=== PATIENT | female | born 1975 | race Caucasian/White ===

== ENCOUNTER 2019-09-01 17:10 | Emergency (ER) | payer BC ==
[2019-09-01] MEDS ORDERED: ONDANSETRON 4 MG (ODT) TAB ONE (17:39)
[2019-09-01] MEDS ORDERED: MORPHINE 4 MG/ML SYR ONE (17:39)
[2019-09-01] MEDS ORDERED: TETANUS & DIPHTHERIA TOX,ADULT 0.5 ML VIAL ONE (17:39)
[2019-09-01] MEDS ORDERED: LIDOCAINE 1% MPF 30 ML VIAL ONE (18:00)
[2019-09-01] MEDS ORDERED: BUPIVACAINE 0.5% PF 10 ML VIAL ONE (18:00)
--- NOTE | 2019-09-01 18:19 | RAD REPORT ---
EXAM DESCRIPTION: RAD - Tib Fib Left - 09/01/2019 6:02 pm CLINICAL HISTORY: injury Pain and swelling COMPARISON: No comparisons FINDINGS: Laceration is seen anterior aspect of the so soft tissues. No fracture or radiopaque for eign body.
--- NOTE | 2019-09-01 20:33 | EDPHYS ---
Physician Documentation [facility] Name: Jennifer Wilkins Age: 44 yrs Sex: Female : 1975 Arrival Date: 09/01/2019 Time: 17:12 Bed 16 Private MD: ED Physician Cesar Jefferson HPI: 08/31 17:35 This 44 yrs old Female presents to ER via Ambulatory with complaints of jmm Laceration To Leg. 17:35 The patient has a laceration related to:. Onset: The symptoms/episode began/occurred jmm acutely, just prior to arrival. Associated signs and symptoms: Pertinent negatives: deformity, loss of consciousness. This is a 44 year old female with a history of hypothyroidism that presents to the ED with complaints of left lower leg pain which developed after her leg was hit with a cement corn grinder. Unsure on tetanus immunization. . Historical: - Allergies: 17:20 Biaxin; ll1 - PMHx: 17:20 Hypothyroidism; ll1 - PSHx: 17:20 ; ll1 - Immunization history:: Last tetanus immunization: < 5 years ago unknown. - Social history:: Smoking status: Patient denies any tobacco usage or history of. Patient/guardian denies using alcohol, street drugs, tobacco products. ROS: 17:35 Constitutional: Negative for fever, chills, and weight loss, Cardiovascular: Negative jmm for chest pain, palpitations, and edema, Respiratory: Negative for shortness of breath, cough, wheezing, and pleuritic chest pain. 17:35 MS/extremity: Positive for injury or acute deformity, laceration. 17:35 Skin: Positive for laceration(s). 17:35 All other systems are negative. Exam: 17:35 Constitutional: This is a well developed, well nourished patient who is awake, alert, jmm and in no acute distress. Head/Face: atraumatic. Eyes: EOMI, no conjunctival erythema appreciated ENT: Moist Mucus Membranes Neck: Trachea midline, Supple Chest/axilla: Normal chest wall appearance and motion. Cardiovascular: Regular rate and rhythm. No edema appreciated Respiratory: Normal respirations, no respiratory distress appreciated Abdomen/GI: Non distended, soft Back: Normal ROM 17:35 Skin: 6 cm laceration noted to the left lower leg. 17:35 Neuro: Orientation: is normal, Mentation: is normal, Memory: is normal. 17:35 Psych: Behavior/mood is pleasant, cooperative. Vital Signs: 17:21 BP 125 / 76; Pulse 93; Resp 18; Temp 98.0; Pulse Ox 100% ; Pain 9/10; ll1 18:26 BP 124 / 71; Pulse 81; Resp 16; Temp 97.6(TE); Pulse Ox 100% on R/A; mh5 Laceration: 20:35 Wound Repair of 9cm ( 3.5in ) subcutaneous laceration to left so. Irregularly pm1 shaped.. Distal neuro/vascular/tendon intact. Anesthesia: Local anesthetic administered with 10 mls of Lido/Marcaine. Wound prep: Extensive cleansing with betadine with hibiclenz by me, Wound irrigation with saline by me, Particulate matter removal of dirt, Wound explored extensively, Copious irrigation. Skin closed with 9 4-0 Prolene using simple sutures and sterile technique. Subcutaneous tissue closed with 4 4-0 Vicryl using simple sutures and sterile technique. Dressed with Neosporin, 4x4's, Kerlix. Patient tolerated well. MDM: 17:27 Patient medically screened. [facility] 18:23 Transition of care: After a detail discussion of the patient's case, care is [facility] transferred to Pascual Vázquez NP. 20:31 Data reviewed: vital signs. Data interpreted: Pulse oximetry: on room air is 100 %. pm1 Interpretation: normal. Counseling: I had a detailed discussion with the patient and/or guardian regarding: the historical points, exam findings, and any diagnostic results supporting the discharge/admit diagnosis, radiology results, the need for outpatient follow up, suture removal in 10-14 days, to return to the emergency department if symptoms worsen or persist or if there are any questions or concerns that arise at home. 20:31 Special discussion: I discussed in detail with the patient the higher chance of wound pm1 infection based on his presenting history. 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 Exp: sv 05/01/2021. Lot #: [id number]. } Route: IM; Site: left deltoid; 18:30 Follow up: Response: No adverse reaction sv 17:45 Drug: Zofran (Ondansetron) 4 mg Route: PO; sv 18:30 Follow up: Response: No adverse reaction sv 17:45 Drug: morphine 4 mg {Note: rass2.} Route: IM; Site: left deltoid; sv 18:30 Follow up: Response: No adverse reaction; RASS: Alert and Calm (0) sv Disposition: 09/01 05:33 Co-signature as Attending Physician, Cesar Jefferson MD I agree with the assessment and [facility] plan of care. Disposition: 09/01/19 20:32 Discharged to Home. Impression: Laceration without foreign body, left lower leg. - Condition is Stable. - Discharge Instructions: Laceration Care, Adult. - Prescriptions for Tylenol- Codeine #3 300-30 mg Oral Tablet - take 2 tablets by ORAL route every 6 hours As needed; 20 tablet. Bactrim DS 800- 160 mg Oral Tablet - take 1 tablet by ORAL route every 12 hours for 10 days; 20 tablet. - Medication Reconciliation Form, Thank You Letter, Antibiotic Education, Prescription Opioid Use form. - Follow up: Emergency Department; When: As needed; Reason: Worsening of condition. Follow up: Private Physician; When: 2 - 3 days; Reason: Recheck today's complaints, Continuance of care, Re-evaluation by your physician. - Problem is new. - Symptoms have improved. Signatures: Dispatcher [employer] Gabbie Shepherd RN RN sv Anderson, Corey, MD MD cha Mickail, Joel, PA PA sharonm Pascual Vázquez, SCOUT LEASER SCOUT LEASER pm1 Lynette Fabian mw2 Tereza Eric RN RN ll1 Corrections: (The following items were deleted from the chart) 08/31 21:07 20:32 09/01/2019 20:32 Discharged to Home. Impression: Laceration without foreign body, mw2 left lower leg. Condition is Stable. Forms are Medication Reconciliation Form, Thank You Letter, Antibiotic Education, Prescription Opioid Use. Follow up: Emergency Department; When: As needed; Reason: Worsening of condition. Follow up: Private Physician; When: 2 - 3 days; Reason: Recheck today's complaints, Continuance of care, Re-evaluation by your physician. Problem is new. Symptoms have improved. pm1
--- NOTE | 2019-09-01 20:33 | ER ---
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 ll1 Right ankle pain also. Bleeding controlled. Coronavirus screen: Proceed with normal triage. Patient denies a cough. Patient denies shortness of breath or difficulty breathing. Patient denies measured and/or subjective temperature greater than 100.4F prior to today's visit. Patient denies travel on a cruise ship or to a country the [facility] currently lists as an affected area. Patient denies contact with known and/or suspected case of COVID-19. Ebola Screen: Patient denies travel to an Ebola-affected area in the 21 days before illness onset. Initial Sepsis Screen: Does the patient meet any 2 criteria? HR > 90 bpm. No. Patient's initial sepsis screen is negative. Risk Assessment: Do you want to hurt yourself or someone else? Patient reports no desire to harm self or others. Onset of symptoms was September 01, 2019. 17:21 Method Of Arrival: Ambulatory ll1 17:21 Acuity: MARK ANTHONY 3 ll1 17:45 Complicating Factors: There are no complicating factors for this patient. Initial sv Sepsis Screen: Does the patient have a suspected source of infection? Yes: Skin breakdown/wound. Historical: - Allergies: 17:20 Biaxin; ll1 - PMHx: 17:20 Hypothyroidism; ll1 - PSHx: 17:20 ; ll1 - Immunization history:: Last tetanus immunization: < 5 years ago unknown. - Social history:: Smoking status: Patient denies any tobacco usage or history of. Patient/guardian denies using alcohol, street drugs, tobacco products. Screenin:27 Abuse screen: Denies threats or abuse. Denies injuries from another. Nutritional sv screening: No deficits noted. Tuberculosis screening: No symptoms or risk factors identified. Fall Risk None identified. Assessment: 17:45 General: Appears in no apparent distress. uncomfortable, well groomed, well developed, sv Behavior is cooperative, appropriate for age, anxious. Pain: Complains of pain in left so Pain currently is 9 out of 10 on a pain scale. Pain began 1 hour ago. Is continuous. Neuro: Level of Consciousness is awake, alert, obeys commands, Oriented to person, place, time, situation, Moves all extremities. Full function. Respiratory: Airway is patent Respiratory effort is even, unlabored, Respiratory pattern is regular, symmetrical. Derm: Skin is intact, Skin is pink, warm \T\ dry. Musculoskeletal: Range of motion: intact in all extremities. Injury Description: Laceration sustained to left so is contaminated, 2.6 to 7.5 cm long, not bleeding, was sustained 30-60 minutes ago. Vital Signs: 17:21 BP 125 / 76; Pulse 93; Resp 18; Temp 98.0; Pulse Ox 100% ; Pain 9/10; ll1 18:26 BP 124 / 71; Pulse 81; Resp 16; Temp 97.6(TE); Pulse Ox 100% on R/A; mh5 ED Course: 17:12 Patient arrived in ED. as 17:21 Arm band placed on Patient placed in an exam room, on a stretcher. ll1 17:22 Triage completed. ll1 17:27 Chandler Gomez PA is PHCP. [facility] 17:27 Cesar Jefferson MD is Attending Physician. [facility] 17:27 Gabbie Noonan, PANTERA is Primary Nurse. sv 17:27 Patient has correct armband on for positive identification. Bed in low position. Call sv light in reach. Door closed. Head of bed elevated. 17:45 Assist provider with laceration repair Set up tray. sv 18:03 Tib Fib Left XRAY In Process Unspecified. EDMS 18:25 Pulse ox on. NIBP on. mh5 18:32 PHCP role handed off by Chandler Gomez PA pm1 18:32 Pascual Vázquez NP is PHCP. pm1 19:08 Report given to Sebas MOTT. sv 19:10 Primary Nurse role handed off by Gabbie Noonan, PANTERA sv 21:15 Patient did not have IV access during this emergency room visit. 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 Exp: sv 05/01/2021. Lot #: [id number]. } Route: IM; Site: left deltoid; 18:30 Follow up: Response: No adverse reaction sv 17:45 Drug: Zofran (Ondansetron) 4 mg Route: PO; sv 18:30 Follow up: Response: No adverse reaction sv 17:45 Drug: morphine 4 mg {Note: rass2.} Route: IM; Site: left deltoid; sv 18:30 Follow up: Response: No adverse reaction; RASS: Alert and Calm (0) sv Outcome: 20:32 Discharge ordered by MD. pm1 21:07 Patient left the ED. mw2 21:14 Discharged to home ambulatory. ao 21:14 Condition: stable 21:14 Discharge instructions given to patient, Instructed on discharge instructions, follow up and referral plans. Demonstrated understanding of instructions, follow-up care, medications, Prescriptions given X 2. Signatures: Dispatcher [employer] EDGabbie Diez RN RN sv Mickail, Joel, PA PA jmm Martinez, Amelia as Ortiz, Alex RN Pascual Macdonald NP VAN CDL DRIVER pm1 Priya Carrizales Lynette Bustos mw2 Tereza rEic RN RN ll1
[2019-09-01 21:13] VITALS: O2SAT 100
[2019-09-01 21:14] VITALS: BP 124/71; TEMP 97.6
== END 2019-09-01 21:07 | disposition home or self-care (01) ==
LOC: ER 17:10
PROC: 0JQP0ZZ Repair Left Lower Leg Subcutaneous Tissue and Fascia, Open Approach (ICD-10-PCS; principal; 2019-09-01)
DX: S81.812A Laceration without foreign body, left lower leg, initial encounter (principal); W22.8XXA Striking against or struck by other objects, initial encounter; Y93.9 Activity, unspecified; Y92.9 Unspecified place or not applicable; E03.9 Hypothyroidism, unspecified; Z23 Encounter for immunization; Z88.6 Allergy status to analgesic agent
CPT/HCPCS: 90471; 90714; 96372; 99284

== ENCOUNTER 2022-03-29 22:42 | Emergency (ER) | payer BC ==
[2022-03-29] MEDS ORDERED: ONDANSETRON 4 MG/2 ML VIAL ONE (23:09)
[2022-03-29] MEDS ORDERED: PANTOPRAZOLE 40 MG INJ ONE (23:09)
[2022-03-29] MEDS ORDERED: MORPHINE 4 MG/ML SYR ONE (23:09)
[2022-03-29] MEDS ORDERED: NA CHLORIDE 0.9% 1,000 ML ONE (23:10)
[2022-03-29 23:18] LABS: Urine Blood Trace-intact (Negative); Urine Glucose Negative (Negative); Urine Protein Negative (Negative); Urine Specific Gravity 1.025 (1.005-1.030)
[2022-03-29 23:37] LABS: Urine Specific Gravity/Preg 1.025 (1.005-1.030)
[2022-03-29 23:41] LABS: Absolute Lymphocytes (CBC) 2.6 K/uL (0.7-4.9); Hematocrit 35.9 % (36.0-45.0); Lymphocytes % 17.8 % (15.3-44.8); MCV 100.3 fL (80-100); MPV 7.1 fL (7.6-11.3); RBC Red Blood Cell Count 3.58 M/uL (3.86-4.86)
[2022-03-29 23:53] LABS: Albumin 3.6 g/dL (3.4-5.0); Bilirubin Total 1.3 mg/dL (0.2-1.0); Potassium 3.3 mmol/L (3.5-5.1); Protein, Total 6.8 g/dL (6.4-8.2)
[2022-03-29 23:58] LABS: Urine Bacteria <20 /HPF (<20); Urine Mucus Slight /HPF (None Seen); Urine RBC <5 /HPF (None Seen)
--- NOTE | 2022-03-30 02:13 | EDPHYS ---
Physician Documentation [facility] Name: Jennifer Wilkins Age: 47 yrs Sex: Female : 1975 Arrival Date: 03/29/2022 Time: 22:46 Bed 14 Private MD: Adam Cooper ED Physician Gabbie Loera HPI: 03/29 22:59 This 47 yrs old Female presents to ER via Ambulatory with complaints of Abdominal Pain. cp 22:59 The patient presents with abdominal pain in the epigastric area. Onset: The cp symptoms/episode began/occurred today, about 1800. The symptoms radiate to Associated signs and symptoms: Pertinent positives: nausea. 23:00 Severity of pain: in the emergency department the pain is unchanged despite home cp interventions. 23:00 The symptoms are described as constant. 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 - Social history:: Smoking status: Patient denies any tobacco usage or history of. ROS: 23:05 Constitutional: Negative for body aches, chills, fever, poor PO intake. cp 23:05 Eyes: Negative for injury, pain, redness, and discharge. cp 23:05 ENT: Negative for drainage from ear(s), ear pain, sore throat, difficulty swallowing, difficulty handling secretions. 23:05 Cardiovascular: Negative for chest pain, edema, palpitations. 23:05 Respiratory: Negative for cough, shortness of breath, wheezing. 23:05 Abdomen/GI: Positive for abdominal pain, nausea, of the epigastric area, Negative for vomiting, diarrhea, constipation. 23:05 Back: Positive for radiated pain. 23:05 Neuro: Negative for altered mental status, headache, syncope, weakness. 23:05 All other systems are negative. Exam: 23:10 Constitutional: The patient appears in no acute distress, alert, awake, cp non-diaphoretic, non-toxic, well developed, well nourished, in obvious pain, uncomfortable. 23:10 Head/Face: Normocephalic, atraumatic. cp 23:10 Eyes: Periorbital structures: appear normal, Conjunctiva: normal, no exudate, no injection, Sclera: no appreciated abnormality, Lids and lashes: appear normal, bilaterally. 23:10 ENT: External ear(s): are unremarkable, Nose: is normal, Mouth: Lips: moist, Oral mucosa: moist, Posterior pharynx: Airway: no evidence of obstruction, patent. 23:10 Chest/axilla: Inspection: normal. 23:10 Cardiovascular: Rate: normal, Rhythm: regular. 23:10 Respiratory: the patient does not display signs of respiratory distress, Respirations: normal, no use of accessory muscles, no retractions, labored breathing, is not present, Breath sounds: are clear throughout, no decreased breath sounds, no stridor, no wheezing. 23:10 Abdomen/GI: Inspection: abdomen appears normal, Bowel sounds: active, all quadrants, Palpation: soft, in all quadrants, severe abdominal tenderness, in the epigastric area, rebound tenderness, is not appreciated, voluntary guarding, is elicited in the epigastric area. 23:10 Back: pain, that is mild, of the mid back area, ROM is normal. 23:10 Neuro: Orientation: to person, place \T\ time. Mentation: is normal, Motor: moves all fours, strength is normal, Sensation: is normal. Vital Signs: 22:49 BP 148 / 89; Pulse 87; Resp 18; Temp 97.7(O); Pulse Ox 100% ; Weight 58.97 kg; Height 5 mb9 ft. 4 in. (162.56 cm); 23:41 BP 139 / 78; Pulse 70; Resp 15; Pulse Ox 99% on R/A; kl 03/30 03:38 BP 132 / 74; Pulse 68; Resp 15; Temp 97.9; Pulse Ox 100% on R/A; kl 03/29 22:49 Body Mass Index 22.31 (58.97 kg, 162.56 cm) mb9 MDM: 03/29 22:54 Patient medically screened. cp 23:30 Differential diagnosis: bowel obstruction, cholecystitis, Cholelithiasis, cp gastroesophageal reflux disease, non-specific abd pain, pancreatitis, Peptic Ulcer Disease, Perf. Duodenal Ulcer, Perf. Gastric Ulcer, Pyelonephritis, Ureterolithiasis, urinary tract infection. 03/30 01:30 Data reviewed: vital signs, nurses notes, lab test result(s), radiologic studies, CT cp scan, ultrasound. Management of patient was discussed with the following: Tariff Publishing Agent: DR Roa who recommends transfer for GI services. I considered the following discharge prescriptions or medication management in the emergency department Medications were administered in the Emergency Department. See MAY. 03/29 23:02 Order name: CBC with Diff; Complete Time: 00:00 03/30 00:00 Interpretation: Normal except: WBC 14.60; RBC 3.58; HCT 35.9; MCV 100.3; MCH 35.4; MPV cp 7.1; LENNY% 75.0; NEUT A 11.0. 03/29 23:02 Order name: CMP; Complete Time: 00:00 03/30 00:01 Interpretation: Abnormal: K 3.3; GFR 78; AST 125; ALT 79; BILIT 1.3. 03/29 23:02 Order name: Lipase; Complete Time: 00:00 03/29 23:02 Order name: Urine Microscopic Only; Complete Time: 00:00 03/29 23:18 Order name: Urine Dipstick-Ancillary; Complete Time: 23:39 EDMS 01 23:39 Interpretation: Normal except: UKET 2+; UBLD Trace-intact. 03/29 23:31 Order name: Urine --Ancillary (enter results); Complete Time: 23:39 wm 03/29 23:02 Order name: XRAY Chest (1 view) 03/29 23:02 Order name: US Abdomen Limited: gallbladder 03/29 23:40 Order name: CT Abd/Pelvis - IV Contrast Only 03/30 01:32 Order name: Lactate w/ 2H reflex if indic.; Complete Time: 03:06 03/30 01:32 Order name: Blood Culture Adult (2) 03/30 01:43 Order name: SARS RAPID; Complete Time: 03:33 03/29 23:02 Order name: IV Saline Lock; Complete Time: 23:40 03/29 23:02 Order name: Labs collected and sent; Complete Time: 23:40 cp 03/29 23:02 Order name: Urine Dipstick-Ancillary (obtain specimen); Complete Time: 23:26 cp 03/29 23:02 Order name: Urine Test (obtain specimen); Complete Time: 23:27 cp Administered Medications: 03/29 23:20 Drug: NS 0.9% 1000 ml Route: IV; Rate: 1 bolus; Site: right antecubital; kl 23:20 Drug: ProTONIX (pantoprazole) 40 mg Route: IVP; Site: right antecubital; kl 23:25 Drug: Zofran (Ondansetron) 4 mg Route: IVP; Site: right antecubital; kl 23:41 Follow up: Response: No adverse reaction; Marked relief of symptoms kl 23:41 Follow up: Response: No adverse reaction; Pain is decreased kl 23:30 Drug: morphine 4 mg Route: IVP; Infused Over: 4 mins; Site: right antecubital; kl 03/30 03:02 Drug: Zosyn (piperacillin-tazobactam) 3.375 grams Route: IVPB; Infused Over: 60 mins; kl Site: right antecubital; 03:02 Not Given (Physician Discretion): NS 0.9% 1000 ml IV at 100 ml/hr continuous kl 03:02 Drug: morphine 4 mg Route: IVP; Infused Over: 4 mins; Site: right antecubital; kl 03:02 Drug: Lactated Ringers Solution 1000 ml Route: IV; Rate: 100 ml/hr; Site: right kl antecubital; 03:03 Drug: Zofran (Ondansetron) 4 mg Route: IVP; Site: right antecubital; kl Disposition: 03:36 STAFF ATTESTATION: The patient's history, exam findings, diagnostics and a summary of sd2 any interventions or procedures was reviewed in detail with the DAVID. I personally interviewed and examined the patient, and I have reviewed and agree with the HPI and exam. My personal exam shows a nontoxic well appearing female in NAD with stable VS. Transfer call with hospitalist taken by myself and patient accepted by Dr. Marin at this time. I confirm the diagnosis as documented by the DAVID. I have reviewed and agree with the care plan articulated in the disposition section. Gabbie Loera MD. Disposition Summary: 03/30/22 02:12 Transfer Ordered Transfer Location: Other Acute Care Facility cp Reason: Higher level of care cp Condition: Stable cp Problem: new cp Symptoms: have improved cp Accepting Physician: Doctor(03/30/22 04:19) leila Diagnosis - Acute cholecystitis cp Forms: - Medication Reconciliation Form cp - SBAR form cp Signatures: Dispatcher [employer] EDElsi Hernández RN RN Cesar lCaire PA PA cp Dunlop, Stephanie, MD MD sd2 Elsa Laguna RN RN mb9 Corrections: (The following items were deleted from the chart) 00:01 00:00 Abnormal: K 3.3. cp cp 00:01 00:01 Abnormal: K 3.3; GFR 78. cp cp 04:19 02:12 Doctor radha dee
--- NOTE | 2022-03-30 02:13 | ER ---
Nurse's Notes [facility] Name: Jennifer Wilkins Age: 47 yrs Sex: Female : 1975 Arrival Date: 03/29/2022 Time: 22:46 Bed 14 Private MD: Adam Cooper Diagnosis: Acute cholecystitis Presentation: 03/29 22:49 Chief complaint: Patient states: "around 6pm this evening I started having stomach pain mb9 that feels like I got punched in the stomach. It hurts all around my rib cage and it hurts to breathe. I've never had pain like this before". Coronavirus screen: Vaccine status: Client denies travel out of the [place] in the last 14 days. At this time, the client does not indicate any symptoms associated with coronavirus-19. Ebola Screen: No symptoms or risks identified at this time. Initial Sepsis Screen: Does the patient meet any 2 criteria? No. Patient's initial sepsis screen is negative. Does the patient have a suspected source of infection? No. Patient's initial sepsis screen is negative. Risk Assessment: Do you want to hurt yourself or someone else? Patient reports no desire to harm self or others. Onset of symptoms was March 29, 2022. 22:49 Method Of Arrival: Ambulatory 9 22:49 Acuity: MARK ANTHONY 3 9 03/30 04:08 Note Pt accepted to [facility] downtime reports called to Mary TORRES pt and family kl updated on POC verbalized understanding. 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 - Social history:: Smoking status: Patient denies any tobacco usage or history of. Screenin:58 [facility] ED Fall Risk Assessment (Adult) History of falling in the last 3 months, mb9 including since admission No falls in past 3 months (0 pts) Confusion or Disorientation No (0 pts) Intoxicated or Sedated No (0 pts) Impaired Gait No (0 pts) Mobility Assist Device Used No (0 pt) Altered Elimination No (0 pt) Score/Fall Risk Level 0 - 2 = Low Risk Oriented to surroundings, Maintained a safe environment, Educated pt \\T\\ family on fall prevention, incl call for assistance when getting out of bed. Abuse screen: Denies threats or abuse. Nutritional screening: No deficits noted. Tuberculosis screening: No symptoms or risk factors identified. Assessment: 23:00 General: Appears distressed, uncomfortable, well groomed, well developed, Behavior is kl anxious, crying. Pain: Complains of pain in abdomen Pain currently is 10 out of 10 on a pain scale. Quality of pain is described as throbbing, gnawing. GI: Bowel sounds present X 4 quads. Abd is soft X 4 quads Abdomen is tender to palpation. : No deficits noted. No signs and/or symptoms were reported regarding the genitourinary system. 03/30 00:26 Reassessment: No changes from previously documented assessment. Patient and/or family kl updated on plan of care and expected duration. Pain level reassessed. Patient is alert, oriented x 3, equal unlabored respirations, skin warm/dry/pink. Patient states feeling better. Patient states symptoms have improved. 02:00 Reassessment: No changes from previously documented assessment. Patient and/or family kl updated on plan of care and expected duration. Pain level reassessed. Patient is alert, oriented x 3, equal unlabored respirations, skin warm/dry/pink. Patient states feeling better. Patient states symptoms have improved. 03:08 Reassessment: No changes from previously documented assessment. Patient and/or family kl updated on plan of care and expected duration. Pain level reassessed. Patient is alert, oriented x 3, equal unlabored respirations, skin warm/dry/pink. Patient states feeling better. updated on plan of care . Vital Signs: 03/29 22:49 BP 148 / 89; Pulse 87; Resp 18; Temp 97.7(O); Pulse Ox 100% ; Weight 58.97 kg; Height 5 mb9 ft. 4 in. (162.56 cm); 23:41 BP 139 / 78; Pulse 70; Resp 15; Pulse Ox 99% on R/A; kl 03/30 03:38 BP 132 / 74; Pulse 68; Resp 15; Temp 97.9; Pulse Ox 100% on R/A; kl 03/29 22:49 Body Mass Index 22.31 (58.97 kg, 162.56 cm) mb9 ED Course: 03/29 22:46 Patient arrived in ED. es 22:46 Adam Cooper DO is Private Physician. es 22:47 Cesar Oneil PA is PHCP. cp 22:47 Gabbie Loera MD is Attending Physician. cp 22:51 Triage completed. mb9 22:52 Arm band placed on. mb9 22:52 Placed in gown. Bed in low position. Call light in reach. Side rails up X 1. Client mb9 placed on continuous cardiac and pulse oximetry monitoring. NIBP monitoring applied. 23:20 Inserted saline lock: 20 gauge in right antecubital area, using aseptic technique. kl Blood collected. 23:26 XRAY Chest (1 view) In Process Unspecified. EDMS 23:27 Urine Microscopic Only Sent. mb9 23:35 US Abdomen Limited: gallbladder In Process Unspecified. EDMS 23:40 CBC with Diff Sent. kl 23:40 CMP Sent. kl 23:40 Lipase Sent. kl 23:43 No provider procedures requiring assistance completed. 03/30 00:32 CT Abd/Pelvis - IV Contrast Only In Process Unspecified. EDMS 01:45 [facility]iated transfer to [facility] per Pt request. 01:54 [facility] declined due to capacity. 01:54 Initiated transfer to [facility] per Pt request, they immediately declined to being on diversion. 02:[address] [facility], spoke with Karina. wm 03:02 Blood Culture Adult (2) Sent. kl 03:42 Pt accepted for transfer to [facility] by Tania Bhat \\T\\ [id number] per Karina Zambrano. 04:10 Patient transferred, IV remains in place. kl Administered Medications: 03/29 23:20 Drug: NS 0.9% 1000 ml Route: IV; Rate: 1 bolus; Site: right antecubital; kl 23:20 Drug: ProTONIX (pantoprazole) 40 mg Route: IVP; Site: right antecubital; kl 23:25 Drug: Zofran (Ondansetron) 4 mg Route: IVP; Site: right antecubital; kl 23:41 Follow up: Response: No adverse reaction; Marked relief of symptoms kl 23:41 Follow up: Response: No adverse reaction; Pain is decreased kl 23:30 Drug: morphine 4 mg Route: IVP; Infused Over: 4 mins; Site: right antecubital; kl 03/30 03:02 Drug: Zosyn (piperacillin-tazobactam) 3.375 grams Route: IVPB; Infused Over: 60 mins; Site: right antecubital; 03:02 Not Given (Physician Discretion): NS 0.9% 1000 ml IV at 100 ml/hr continuous kl 03:02 Drug: morphine 4 mg Route: IVP; Infused Over: 4 mins; Site: right antecubital; kl 03:02 Drug: Lactated Ringers Solution 1000 ml Route: IV; Rate: 100 ml/hr; Site: right kl antecubital; 03:03 Drug: Zofran (Ondansetron) 4 mg Route: IVP; Site: right antecubital; Medication: 04:10 VIS not applicable for this client. Outcome: 02:12 ER care complete, transfer ordered by . radha 04:09 Transferred by ground EMS to [facility], Transfer form completed. X-rays sent w/ patient. 04:09 Condition: improved 04:09 Discharge instructions given to patient, family, Instructed on the need for transfer, Demonstrated understanding of instructions. 04:19 Patient left the ED. Signatures: Dispatcher [employer] Elsi Gonzalez, PANTERA RN Kiera Hirsch Corey, PA PA cp Marsh, Wendy wm Breneman, Mary Beth, RN RN mb9
[2022-03-30] MEDS ORDERED: Ringers Lactate 1,000 ML IV ONE (02:48)
[2022-03-30] MEDS ORDERED: NA CHLORIDE 0.9% 100 ML IV ONE (02:48)
[2022-03-30] MEDS ORDERED: MORPHINE 4 MG/ML SYR ONE (02:48)
[2022-03-30] MEDS ORDERED: PIPERACIL/TAZO 3.375 GM VIAL IV ONE (02:49)
[2022-03-30] MEDS ORDERED: ONDANSETRON 4 MG/2 ML VIAL ONE (03:01)
[2022-03-30 03:19] LABS: SARS-CoV-2 Antigen Rapid Res Negative (Negative)
[2022-03-30 04:45] VITALS: BP 132/74; TEMP 97.9; O2SAT 100
--- NOTE | 2022-03-30 11:01 | RAD REPORT ---
EXAM DESCRIPTION: XR Chest, 1 View CLINICAL HISTORY: The patient is 47 years old and is Female; epigastric pain TECHNIQUE: Frontal view of the chest. COMPARISON: No relevant prior studies available. FINDINGS: Lungs: Unremarkable. No consolidation. Pleural space: Unremarkable. No pneumothorax. Heart: Unremarkable. Mediastinum: Dense ring overlying the expected location of the gastroesophageal junction. Bones/joints: Unremarkable. IMPRESSION: No acute findings in the chest. Electronically signed by: Bandar Armstrong MD 03/29/2022 11:41 PM DIGITAL PRINTER Due to temporary technical issues with the PACS/Fluency reporting system, reports are being signed by the in house radiologists without review as a courtesy to insure prompt reporting. The interpreting radiologist is fully responsible for the content of the report.
--- NOTE | 2022-03-30 11:33 | RAD REPORT ---
EXAM DESCRIPTION: US Abdomen Limited, Gallbladder CLINICAL HISTORY: ABD PAIN TECHNIQUE: Real-time ultrasound of the right upper quadrant with image documentation. COMPARISON: No relevant prior studies available. FINDINGS: Gallbladder: Multiple gallstones within a mildly distended gallbladder. No gallbladder wall thickening or pericholecystic fluid. Common bile duct: Unremarkable as visualized. No stones. No dilation. IMPRESSION: Cholelithiasis without secondary signs to suggest acute cholecystitis. Electronically signed by: Susi Sinha MD 03/30/2022 12:05 AM MANAGER GAMING Due to temporary technical issues with the PACS/Fluency reporting system, reports are being signed by the in house radiologists without review as a courtesy to insure prompt reporting. The interpreting radiologist is fully responsible for the content of the report.
--- NOTE | 2022-03-30 11:55 | RAD REPORT ---
EXAM DESCRIPTION: CT Abdomen and Pelvis With Intravenous Contrast CLINICAL HISTORY: Upper abdomen pain TECHNIQUE: Axial computed tomography images of the abdomen and pelvis with intravenous contrast. S agittal and coronal reformatted images were created and reviewed. This CT exam was performed using one or more of the following dose reduction techniques: automated exposure control, adjustment of t he mA and/or kV according to patient size, and/or use of iterative reconstruction technique. COMPARISON: CT Abdomen Pelvis dated 08/31/2016, Right upper quadrant ultrasound dated 03/29/2022 FINDINGS: Lung bases: Unremarkable. No mass. No consolidation. ABDOMEN: Liver: Mild periportal edema. The liver is enlarged. Gallbladder and bile ducts: Distended gallbladder. Small amount of pericholecystic fluid. No ca lcified gallstones or gallbladder wall thickening. Minimal biliary dilatation. Pancreas: Unremarkable. No mass. No ductal dilation. Spleen: Unremarkable. No splenomegaly. Adrenals: Unremarkable. No mass. Kidneys and ureters: Small bilateral renal calculi. No hydronephrosis. Stomach and bowel: Interval gastric banding. Moderate stool within the proximal to mid large leonora l. No mucosal thickening. PELVIS: Appendix: Normal caliber appendix. No findings to suggest acute appendicitis. Bladder: Unremarkable. No mass. Reproductive: Unremarkable as visualized. ABDOMEN and PELVIS: Intraperitoneal space: Small amount of free fluid within the cul-de-sac. No free air. Bones/joints: No acute fracture. No dislocation. Soft tissues: See above. Vasculature: Unremarkable. No abdominal aortic aneurysm. Lymph nodes: Unremarkable. No enlarged lymph nodes. IMPRESSION: 1. Findings which may reflect early acute cholecystitis. Mild biliary dilatation. No demonstrable calcified ductal stones. 2. Other findings as above. Electronically signed by: Susi Sinha MD 03/30/2022 1:09 AM LIMOUSINE DRIVER Due to temporary technical issues with the PACS/Fluency reporting system, reports are being signed by the in house radiologists without review as a courtesy to insure prompt reporting. The interpreting radiologist is fully responsible for the content of the report.
== END 2022-03-30 04:19 ==
LOC: ER 22:42
DX: K81.0 Acute cholecystitis (principal); E03.9 Hypothyroidism, unspecified; F32.A Depression, unspecified; Z88.1 Allergy status to other antibiotic agents; Z20.822 Contact with and (suspected) exposure to COVID-19
CPT/HCPCS: 87040 ×2; 85025; 36415; 81025; 83605; 83690; 80053; 74177; 71045; 76705; 96375; 96374; 99285; 87811; Q9967; J2543; C9113; J7120; J7030; J2405 ×2; 81003; 81015